=== PATIENT | male | born 1945 | race African-American/Black ===

== ENCOUNTER 2017-08-07 09:17 | Emergency (ER) | payer MEDICARE, OTHER ==
[2017-08-07] MEDS ORDERED: MORPHINE SULFATE 2 MG/ML INJ IV PUSH ONE (10:00)
[2017-08-07] MEDS ORDERED: ONDANSETRON HCL 4 MG/2 ML VIAL IV PUSH ONE (10:00)
[2017-08-07] MEDS ORDERED: LORazepam 2 MG/ML VIAL IV PUSH ONE (10:00)
[2017-08-07] MEDS ORDERED: SODIUM CHLOR 0.9% 1000 ML INJ 1,000 ML IV SCH (10:00)
--- NOTE | 2017-08-07 10:14 | PD ---
HPI Chief Complaint: Psychiatric Symptoms Time Seen by Provider: 09:40 Travel History International Travel<30 days: No Contact w/Intl Traveler<30days: No Traveled to known affect area: No History of Present Illness HPI 71-year-old male presented to [facility] emergency room by police escort. Patient was an inpatient at [facility]. Patient with admitted for pancolitis, acute gastric ulcer, esophageal stricture. Patient with given IV antibiotic, including IV Flagyl and Zosyn. Patient was not found to be argumentative and belligerent. Police Department was contacted and patient with brought to ED at [facility] from [facility] for evaluation. We did not receive any report from [facility] or any transfer information from [facility]. The transfer center was not contacted by [facility] in [place]. Patient does awake alert oriented 3. Patient complains of abdominal pain. PFSH Social History Tobacco Use: No Allergies-Medications (Allergen,Severity, Reaction): Coded Allergies: No Known Allergies (Unverified , 08/07/17) Review of Systems General / Constitutional: No: Fever Eyes: No: Visual changes HENT: No: Headaches Cardiovascular: No: Chest Pain or Discomfort Respiratory: No: Shortness of Breath Gastrointestinal: Positive: Abdominal Pain Genitourinary: No: Dysuria Musculoskeletal: No: Pain Skin: No Rash Neurologic: No: Weakness Psychiatric: No: Depression Endocrine: No: Polydipsia Hematologic/Lymphatic: No: Easy Bruising Physical Exam Narrative GENERAL: Well-nourished, well-developed patient. Patient's agitated. SKIN: Focused skin assessment warm/dry. HEAD: Normocephalic. EYES: No scleral icterus. No injection or drainage. NECK: Supple, trachea midline. No JVD or lymphadenopathy. CARDIOVASCULAR: Regular rate and rhythm without murmurs, gallops, or rubs. RESPIRATORY: Breath sounds equal bilaterally. No accessory muscle use. GASTROINTESTINAL: Abdomen soft, nondistended. Patient has moderate diffuse tenderness over the abdomen. No rebound tenderness. No mass. MUSCULOSKELETAL: No cyanosis, or edema. BACK: Nontender without obvious deformity. No CVA tenderness. Neurologic exam: Patient awake alert oriented 3. Patient moves all extremities well. No obvious focal neurological deficit. Data Data Orders Orders Lorazepam Inj (Ativan Inj) (08/07/17 10:00) Morphine Inj (Morphine Inj) (08/07/17 10:00) Ondansetron Inj (Zofran Inj) (08/07/17 10:00) Sodium Chlor 0.9% 1000 Ml Inj (Ns 1000 M (08/07/17 10:00) Complete Blood Count With Diff (08/07/17 10:02) Comprehensive Metabolic Panel (08/07/17 10:02) Prothrombin Time / Inr (Pt) (08/07/17 10:02) Act Partial Throm Time (Ptt) (08/07/17 10:02) Lipase (08/07/17 10:02) Urinalysis - C+S If Indicated (08/07/17 10:02) Iv Access Insert/Monitor (08/07/17 10:02) Ecg Monitoring (08/07/17 10:02) Oximetry (08/07/17 10:02) Psych Screen (08/07/17 10:15) Ed Discharge Order (08/07/17 13:44) Labs Laboratory Tests Test 08/07/17 09:40 08/07/17 11:10 Urine Color DARK-BROWN Urine Turbidity CLOUDY Urine pH 6.5 Urine Specific [place] 1.050 Urine Protein 100 mg/dL Urine Glucose (UA) TRACE mg/dL Urine Ketones TRACE mg/dL Urine Occult Blood NEG Urine Nitrite NEG Urine Bilirubin NEG Urine Urobilinogen LESS THAN 2.0 MG/DL Urine Leukocyte Esterase SMALL Urine RBC 1 /hpf Urine WBC 4 /hpf Urine Mucus FEW /lpf Microscopic Urinalysis Comment CULT NOT INDICATED White Blood Count 11.3 TH/MM3 Red Blood Count 3.28 MIL/MM3 Hemoglobin 9.9 GM/DL Hematocrit 29.3 % Mean Corpuscular Volume 89.5 FL Mean Corpuscular Hemoglobin 30.3 PG Mean Corpuscular Hemoglobin Concent 33.9 % Red Cell Distribution Width 14.4 % Platelet Count 422 TH/MM3 Mean Platelet Volume 7.8 FL Neutrophils (%) (Auto) 93.1 % Lymphocytes (%) (Auto) 3.0 % Monocytes (%) (Auto) 3.8 % Eosinophils (%) (Auto) 0.0 % Basophils (%) (Auto) 0.1 % Neutrophils # (Auto) 10.5 TH/MM3 Lymphocytes # (Auto) 0.3 TH/MM3 Monocytes # (Auto) 0.4 TH/MM3 Eosinophils # (Auto) 0.0 TH/MM3 Basophils # (Auto) 0.0 TH/MM3 CBC Comment DIFF FINAL Differential Comment MDM Medical Decision Making Medical Screen Exam Complete: Yes Emergency Medical Condition: Yes Differential Diagnosis Differential diagnosis including pancolitis, adjustment disorder, personality disorder. Narrative Course 71-year-old male with abdominal pain, history of pancolitis. Patient was brought to the emergency room at [place] from [facility]. Frank Plummer MD Aug 07, 2017 10:14
[2017-08-07 10:34] LABS: BILIRUBIN, URINE NEG (NEG); BLOOD, URINE NEG (NEG); GLUCOSE,URINE TRACE mg/dL (NEG); KETONE, URINE TRACE mg/dL (NEG); MUCUS URINE FEW /lpf (OCC); NITRITE,URINE NEG (NEG); PH, URINE 6.5 (5.0-8.5); URINE LEUKOCYTE ESTERASE SMALL (NEG)
[2017-08-07 10:35] LABS: URINE COLOR DARK-BROWN (YELLW/STRAW)
[2017-08-07 11:33] LABS: AUTOMATED NEUTROPHIL # 10.5 TH/MM3 (1.8-7.7); BASOPHIL % 0.1 % (0.0-2.0); HEMATOCRIT 29.3 % (39.0-51.0); HEMOGLOBIN 9.9 GM/DL (13.0-17.0); LYMPHOCYTE # 0.3 TH/MM3 (1.0-4.8); MEAN CELL VOLUME 89.5 FL (80.0-100.0); MEAN CORPUSCULAR HEMOGLOBIN 30.3 PG (27.0-34.0); MEAN CORPUSCULAR HGB CONC 33.9 % (32.0-36.0); MEAN PLATELET VOLUME 7.8 FL (7.0-11.0); MONO % 3.8 % (0.0-8.0); MONOCYTE # 0.4 TH/MM3 (0-0.9); NEUT % 93.1 % (16.0-70.0); PLATELET COUNT 422 TH/MM3 (150-450); RED BLOOD COUNT 3.28 MIL/MM3 (4.50-5.90); RED CELL DISTRIBUTION WIDTH 14.4 % (11.6-17.2); WHITE BLOOD COUNT 11.3 TH/MM3 (4.0-11.0)
--- NOTE | 2017-08-07 13:44 | PD ---
Data Data Orders Orders Lorazepam Inj (Ativan Inj) (08/07/17 10:00) Morphine Inj (Morphine Inj) (08/07/17 10:00) Ondansetron Inj (Zofran Inj) (08/07/17 10:00) Sodium Chlor 0.9% 1000 Ml Inj (Ns 1000 M (08/07/17 10:00) Complete Blood Count With Diff (08/07/17 10:02) Comprehensive Metabolic Panel (08/07/17 10:02) Prothrombin Time / Inr (Pt) (08/07/17 10:02) Act Partial Throm Time (Ptt) (08/07/17 10:02) Lipase (08/07/17 10:02) Urinalysis - C+S If Indicated (08/07/17 10:02) Iv Access Insert/Monitor (08/07/17 10:02) Ecg Monitoring (08/07/17 10:02) Oximetry (08/07/17 10:02) Psych Screen (08/07/17 10:15) Ed Discharge Order (08/07/17 13:44) Labs Laboratory Tests Test 08/07/17 09:40 08/07/17 11:10 Urine Color DARK-BROWN Urine Turbidity CLOUDY Urine pH 6.5 Urine Specific [place] 1.050 Urine Protein 100 mg/dL Urine Glucose (UA) TRACE mg/dL Urine Ketones TRACE mg/dL Urine Occult Blood NEG Urine Nitrite NEG Urine Bilirubin NEG Urine Urobilinogen LESS THAN 2.0 MG/DL Urine Leukocyte Esterase SMALL Urine RBC 1 /hpf Urine WBC 4 /hpf Urine Mucus FEW /lpf Microscopic Urinalysis Comment CULT NOT INDICATED White Blood Count 11.3 TH/MM3 Red Blood Count 3.28 MIL/MM3 Hemoglobin 9.9 GM/DL Hematocrit 29.3 % Mean Corpuscular Volume 89.5 FL Mean Corpuscular Hemoglobin 30.3 PG Mean Corpuscular Hemoglobin Concent 33.9 % Red Cell Distribution Width 14.4 % Platelet Count 422 TH/MM3 Mean Platelet Volume 7.8 FL Neutrophils (%) (Auto) 93.1 % Lymphocytes (%) (Auto) 3.0 % Monocytes (%) (Auto) 3.8 % Eosinophils (%) (Auto) 0.0 % Basophils (%) (Auto) 0.1 % Neutrophils # (Auto) 10.5 TH/MM3 Lymphocytes # (Auto) 0.3 TH/MM3 Monocytes # (Auto) 0.4 TH/MM3 Eosinophils # (Auto) 0.0 TH/MM3 Basophils # (Auto) 0.0 TH/MM3 CBC Comment DIFF FINAL Differential Comment [facility] Medical Record Reviewed: Yes Supervised Visit with KALPANA: No Narrative Course CBC & BMP Diagram 08/07/17 11:10 CMP from outside hospital obtained today shows: Sodium 139 potassium 3.7 chloride 102 CO2 29 BUN 11 creatinine 0.94 glucose 144 calcium 7.5 mg 2.1 AST 10 ALT 7 total bili 0.4 alkaline phosphatase 40 albumin 2.2 Cooper Act lifted by our psychiatry service. The patient is requesting to go home. Please refer to the note written by the previous provider. I spoke with the physician from [facility]. Evidently the patient had been on their service for a few days and had become increasingly cantenkrous with staff threatening them at times. A code jackman was called at the hospital and security were on scene as well as the police officers for the [facility]. They advised the attending physician to place a Cooper Act on the patient so they could bring him to the [facility]. The attending reported the patient refused care there and for that reason was considered suitable for discharge however given the patient' s attestations of homicidality and suicidality was unsafe to do so. For that reason the patient was placed under Cooper act. The patient has been ambulatory in our ER. At this point in admission for further medical care is considered to be a little additional benefit for the patient. Patient is an annoyance with a care provider that previous hospital is unclear however seems to be related to failure to provide patient with pain medications. Diagnosis Primary Impression: Agitation Med/Other Pt SpecificInfo: No Change to Meds Disposition: 01 DISCHARGE HOME Condition: Stable Esequiel Chow MD Aug 07, 2017 13:44
--- NOTE | 2017-08-07 13:46 | PD ---
History of Present Illness Chief Complaint: Psychiatric Symptoms Time Seen by Provider: 13:30 Travel History International Travel<30 Days: No Contact w/Intl Traveler<30days: No Known affected area: No Legal Status Legal Status: Cooper Act History of Present Illness: 71-year-old male who appears to have been inappropriately Cooper acted for allegedly belligerent and threatening behavior. Patient came here from [facility] and what also appears to be an inappropriate transfer of an inpatient. At the time of this evaluation, the patient was calm and cooperative although certainly disappointed in being sent here under a Cooper act. He repeatedly denies any suicidal or homicidal ideation, plan or intent. He has no psychotic symptoms and his cognition is intact. He would like to get home to his significant other of many years because she has medical problems which he describes as worse than his. He does report being annoyed with the staff at the previous hospital as they did not give him any solid food for 5 days. After reviewing the record, this physician at least understands they may not have given him solid food due to his medical issues (pancreatitis, etc.). At this point the patient is verbally ainsley for safety and he is competent to do so and he would like to go home. PFSH Past Medical History Gastrointestinal Disorders: Yes Psychiatric History Psychiatric History Hx Psychiatric Treatment: Denied History of Inpatient Treatment: No Guns or firearms in home: No Social History Hx Alcohol Use: No Hx Tobacco Use: No Hx Substance Use: No Hx of Substance Use Treatment: No Allergies-Medications (Allergen,Severity, Reaction): Coded Allergies: No Known Allergies (Unverified , 08/07/17) Review of Systems Except as stated in HPI: all other systems reviewed are Neg Mental Status Examination Appearance: Appropriate Consciousness: Alert Orientation: x4 Motor Activity: Normal gait Speech: Unremarkable Language: Adequate Fund of Knowledge: Adequate Attention and Concentration: Adequate Memory: Unremarkable Mood: Appropriate Affect: Appropriate Thought Process & Associations: Intact Thought Content: Appropriate Hallucination Type: None Delusion Type: None Suicidal Ideation: No Suicidal Plan: No Suicidal Intention: No Homicidal Ideation: No Homicidal Plan: No Homicidal Intention: No Insight: Adequate Judgment: Adequate MDM Medical Decision Making Medical Record Reviewed: Yes Assessment/Plan Patient interviewed at bedside. Electronic medical record reviewed. Case discussed with nurse Tameka and Dr. Chow. Patient does not meet Cooper act criteria and does not meet criteria for psychiatric hospitalization. Orders Orders Lorazepam Inj (Ativan Inj) (08/07/17 10:00) Morphine Inj (Morphine Inj) (08/07/17 10:00) Ondansetron Inj (Zofran Inj) (08/07/17 10:00) Sodium Chlor 0.9% 1000 Ml Inj (Ns 1000 M (08/07/17 10:00) Complete Blood Count With Diff (08/07/17 10:02) Comprehensive Metabolic Panel (08/07/17 10:02) Prothrombin Time / Inr (Pt) (08/07/17 10:02) Act Partial Throm Time (Ptt) (08/07/17 10:02) Lipase (08/07/17 10:02) Urinalysis - C+S If Indicated (08/07/17 10:02) Iv Access Insert/Monitor (08/07/17 10:02) Ecg Monitoring (08/07/17 10:02) Oximetry (08/07/17 10:02) Psych Screen (08/07/17 10:15) Results Laboratory Tests Test 08/07/17 09:40 08/07/17 11:10 Urine Color DARK-BROWN Urine Turbidity CLOUDY Urine pH 6.5 Urine Specific [place] 1.050 Urine Protein 100 Urine Glucose (UA) TRACE Urine Ketones TRACE Urine Occult Blood NEG Urine Nitrite NEG Urine Bilirubin NEG Urine Urobilinogen LESS THAN 2.0 Urine Leukocyte Esterase SMALL Urine RBC 1 Urine WBC 4 Urine Mucus FEW Microscopic Urinalysis Comment CULT NOT INDICATED White Blood Count 11.3 Red Blood Count 3.28 Hemoglobin 9.9 Hematocrit 29.3 Mean Corpuscular Volume 89.5 Mean Corpuscular Hemoglobin 30.3 Mean Corpuscular Hemoglobin Concent 33.9 Red Cell Distribution Width 14.4 Platelet Count 422 Mean Platelet Volume 7.8 Neutrophils (%) (Auto) 93.1 Lymphocytes (%) (Auto) 3.0 Monocytes (%) (Auto) 3.8 Eosinophils (%) (Auto) 0.0 Basophils (%) (Auto) 0.1 Neutrophils # (Auto) 10.5 Lymphocytes # (Auto) 0.3 Monocytes # (Auto) 0.4 Eosinophils # (Auto) 0.0 Basophils # (Auto) 0.0 CBC Comment DIFF FINAL Differential Comment Diagnosis Primary Impression: Adjustment disorder with mixed disturbance of emotions and conduct Nathanael Constantino MD Aug 07, 2017 13:46
== END 2017-08-07 15:55 | disposition home or self-care (01) ==
LOC: NEPE 09:17 → NEDAMB 15:55
DX: F43.25 Adjustment disorder with mixed disturbance of emotions and conduct (principal); R45.1 Restlessness and agitation; K85.90 Acute pancreatitis without necrosis or infection, unspecified
CPT/HCPCS: 81001; 85025; 96374; 96375; 99284; J2060; J2270; J2405; J7030